=== PATIENT | female | born 1965 | race Caucasian/White ===

== ENCOUNTER 2023-11-05 13:09 | Emergency (ER) | payer OTHER, SELFPAY ==
[2023-11-05 13:39] VITALS: BP 118/79; PULSE 95; RESP 16; TEMP 36.9; O2SAT 99
--- NOTE | 2023-11-05 14:08 | ED.URI ---
HPI - URI/Sore Throat General Chief Complaint: Upper Respiratory Infection Stated Complaint: Cough, Congestion, Bodyache Time Seen by Provider: 11/05/23 14:05 Source: patient Mode of arrival: ambulatory Limitations: no limitations History of Present Illness HPI Narrative: Whitney is a 4-year-old female patient presenting to clinic today with complaints of cough, congestion, and body aches that started last night. No known fever or chills. Denies any shortness of breath or chest pain. MD elicited complaint: sore throat and nasal congestion Related Data Allergies Allergy/AdvReac Type Severity Reaction Status Date / Time No Known Allergies Allergy Unverified 11/05/23 13:52 Review of Systems Review of Systems: Pertinent positives per HPI. Patient denies any fever, chills, rash, headache, visual changes, dizziness, cough, shortness of breath, chest pain, palpitations, nausea, vomiting, diarrhea, constipation, abdominal pain, or any urinary issues. PMFSH Past Medical History Medical History (Updated 11/05/23 @ 14:10 by Haroldo Boland APRN) Acute sinusitis CAP (community acquired pneumonia) Dyslipidemia Hypertension Surgical History Surgical History History of bunionectomy Hx of colonoscopy 2016 Family History Family History Other Hypertension Social History Social History Smoking status: Former smoker Alcohol intake: current Substance use: never Living arrangements: with family Agree to blood products: Yes Comments At the time of my signature, I reviewed and agree with the nursing past medical, surgical, social, and family history. There is no relevant family history pertinent to the patient complaint. Exam Narrative: General: Well-developed, well nourished, in no apparent distress Head: Normocephalic, atraumatic Eyes: Pupils equally round and reactive to light bilaterally, EOM intact, sclera and conjunctive clear, no discharge, lids normal Ears: TMs intact and clear, ear canals clear, no drainage, grossly hearing normal. Nose: Nares patent, clear nasal discharge, no inflammation, no sinus tenderness. Mouth: Oral pharynx without lesions or masses, good dentition, MMM. Postnasal drip Neck: Supple, trachea midline, no enlargement of anterior or posterior cervical nodes, no thyroid masses or goiter palpable. Cardio: Regular rate and rhythm, s1 and s2 normal, no murmur appreciated. Resp: Clear to auscultation bilaterally, no rhonchi, rales, wheezing or rubs Course Course Emergency Course: Portions of this record may have been created with voice recognition software. Level of Care: Express Care Visit Vital Signs Vital signs: Vital Signs Temperature 36.9 C 11/05/23 13:39 Pulse Rate 95 11/05/23 13:39 Respiratory Rate 16 11/05/23 13:39 Blood Pressure 118/79 11/05/23 13:39 Pulse Oximetry 99 11/05/23 13:39 Temperature 36.9 C 11/05/23 13:39 Pulse Rate 95 11/05/23 13:39 Respiratory Rate 16 11/05/23 13:39 Blood Pressure 118/79 11/05/23 13:39 Pulse Oximetry 99 11/05/23 13:39 Vital signs reviewed MDM - URI/Sore Throat MDM Narrative Medical decision making narrative: At the time of visit patient is resting comfortably on the exam table. Patient appears to be nontoxic. COVID and influenza testing was negative. I suspect patient has URI with viral syndrome. Supportive measures were discussed with the patient and they voiced understanding discharge instructions and agrees to treatment plan. Return precautions reviewed Differential Diagnosis Differential diagnosis: Likely upper respiratory infection, otitis media, sinusitis, viral infection, bronchitis, influenza, pharyngitis and other (COVID) Lab Data Labs: Influenza A Screen Negative
== END 2023-11-05 14:14 | disposition home or self-care (01) ==
PROVIDERS: Emergency Provider Nurse Practitioner Family; PCP Family Medicine
DX: J06.9 Acute upper respiratory infection, unspecified (principal); I10 Essential (primary) hypertension; E78.5 Hyperlipidemia, unspecified; Z87.891 Personal history of nicotine dependence; Z20.822 Contact with and (suspected) exposure to COVID-19
CPT/HCPCS: 87426; 87804; 99213; C9803; G0463